=== PATIENT | female | born 1945 | race African-American/Black ===

== ENCOUNTER 2017-11-17 22:12 | Inpatient (IN) | payer MEDICARE, MEDICAID ==
[~2017-11-17] VITALS: Ht 170.2 cm; Wt 90.7 kg
[~2017-11-17 22:12] MED LIST: AMLODIPINE; HYDROCHLOROTHIAZIDE; MOTRIN; NAPROXEN; TEMAZEPAM; TRAMADOL
[2017-11-17] MEDS ORDERED: SODIUM CHLORIDE 0.9% 1,000 ML IV ONE (22:28)
[2017-11-17] MEDS ORDERED: LEVETIRACETAM 500MG PREMIX 100 ML IV ONE (22:30)
[2017-11-17 23:36] LABS: CHLORIDE 108 mEq/L (98-107)
[2017-11-17 23:39] LABS: ETHANOL BLOOD < 10 mg/dL
[2017-11-17 23:41] LABS: BASOPHILS % 0.6 % (0.0-2.0); EOSINOPHILS % 1.4 % (0.0-5.0); HEMATOCRIT. 36.1 % (36.0-48.0); HEMOGLOBIN. 12.4 g/dL (12.0-16.0); LYMPHOCYTES % 43.3 % (20.0-50.0); MEAN CORPUSCULAR HEMOGLOBIN 30.3 pg (28.0-32.0); MEAN CORPUSCULAR VOLUME 88.4 fL (81.0-99.0); MONOCYTES % 8.6 % (2.0-8.0); NEUTROPHILS % 46.1 % (40.0-76.0); PLATELET 342 x1000/uL (130-400); RED BLOOD CELL COUNT 4.08 mill/uL (4.2-5.4); RED CELL DISTRIBUTION WIDTH 12.6 % (11.6-14.6)
[2017-11-17 23:46] LABS: CREATINE KINASE MB FRACTION 0.9 ng/mL (0.5-3.6)
[2017-11-17 23:47] LABS: INR 1.1; PARTIAL THROMBOPLASTIN TIME 26.2 sec (23.4-31.0); PROTHROMBIN TIME 11.3 sec (9.4-11.6)
[2017-11-18] MEDS ORDERED: ASPIRIN 325MG EC TABLET PO ONE
[2017-11-18 03:00] LABS: *AMPHETAMINES SCREEN URINE NEGATIVE (NEGATIVE)
[2017-11-18 03:01] LABS: *BARBITURATES SCREEN URINE NEGATIVE (NEGATIVE); *BENZODIAZEPINES SCREEN URINE NEGATIVE (NEGATIVE); *COCAINE SCREEN URINE NEGATIVE (NEGATIVE); CANNABINOID URINE SCREEN NEGATIVE (NEGATIVE); METHADONE URINE SCREEN NEGATIVE (NEGATIVE); OPIATES URINE SCREEN NEGATIVE (NEGATIVE); PHENCYCLIDINE URINE SCREEN NEGATIVE (NEGATIVE)
[2017-11-18 04:00] VITALS: BP 158/63
[2017-11-18] MEDS ORDERED: HYDROCODONE/ACETAMINOPHEN 5/325MG TABLET PO PRN (04:45)
[2017-11-18 08:00] VITALS: BP 133/77
[2017-11-18] MEDS ORDERED: ENOXAPARIN 40MG/0.4ML SYR SUBCUT SCH (09:00)
[2017-11-18] MEDS: SODIUM CHLORIDE 0.45% 1,000 ML IV SCH (09:25)
[2017-11-18] MEDS ORDERED: AMLO10TA80 MT (11:06)
[2017-11-18] MEDS ORDERED: SIMV20TA6 MT (11:06)
[2017-11-18] MEDS ORDERED: HYDR-4009 MT (11:07)
[2017-11-18] MEDS ORDERED: HYDR-2510 MT (11:16)
[2017-11-18] MEDS ORDERED: NAPR220C7 MT (11:16)
[2017-11-18 12:00] VITALS: BP 172/88
[2017-11-18 20:00] VITALS: BP 157/90
[2017-11-18 23:47] VITALS: BP 167/85
[2017-11-19 04:00] VITALS: BP 166/82
[2017-11-19 08:00] VITALS: BP 129/84
[2017-11-19 10:00] VITALS: BP 129/84
[2017-11-19] MEDS: ENOXAPARIN 30MG/0.3ML SYR SUBCUT SCH ×2 (11:03→20:16)
[2017-11-19 11:42] VITALS: BP 116/74
[2017-11-19 16:00] VITALS: BP 145/90
[2017-11-19] MEDS: SODIUM CHLORIDE 0.45% 1,000 ML IV SCH (16:00)
[2017-11-19 18:00] VITALS: BP 145/90
[2017-11-20] VITALS: BP 163/74
[2017-11-20] MEDS ORDERED: CLONIDINE 0.2MG TABLET PO PRN (03:30)
[2017-11-20 03:40] VITALS: BP 167/97
[2017-11-20] MEDS: SODIUM CHLORIDE 0.45% 1,000 ML IV SCH (03:42)
[2017-11-20 05:00] VITALS: BP 115/78
[2017-11-20 08:00] VITALS: BP 138/75
[2017-11-20] MEDS: ENOXAPARIN 30MG/0.3ML SYR SUBCUT SCH (08:56)
[2017-11-20 09:48] VITALS: BP 138/75
== END 2017-11-20 12:11 | disposition home or self-care (01) | DRG 52 ==
LOC: ER 22:18 → 8WST 11-18 00:12 → EDBEDREQDT 11-18 00:16 → EDBEDREQTM 11-18 00:16 → EDBEDREQ 11-18 00:16
PROVIDERS: ADMIT Internal Medicine; ATTEND Internal Medicine
DX: G93.41 Metabolic encephalopathy (principal); E46 Unspecified protein-calorie malnutrition; D64.9 Anemia, unspecified; T42.4X5A Adverse effect of benzodiazepines, initial encounter; E86.0 Dehydration; I10 Essential (primary) hypertension; E78.00 Pure hypercholesterolemia, unspecified; I73.9 Peripheral vascular disease, unspecified; Z79.899 Other long term (current) drug therapy; Z68.31 Body mass index [BMI] 31.0-31.9, adult; Y92.89 Other specified places as the place of occurrence of the external cause
CPT/HCPCS: 36415; 70450; 71045; 80053; 80305; 82553; 84484; 85025; 85610; 85730; 93005; 96365; 97162; 99285; G0482; J1650; J1953; J7030

== ENCOUNTER 2018-05-08 06:14 | Emergency (ER) | payer MEDICARE, MEDICAID ==
[~2018-05-08] VITALS: Ht 162.6 cm; Wt 70.0 kg
[~2018-05-08 06:14] MED LIST changes: +AMLO10TA80 MT; -AMLODIPINE; +HYDR-2510 MT; +HYDR-4009 MT; -HYDROCHLOROTHIAZIDE; -MOTRIN; +NAPR220C7 MT; -NAPROXEN; +SIMV20TA6 MT; -TEMAZEPAM; -TRAMADOL
[2018-05-08 07:29] LABS: BASOPHILS % 0.7 % (0.0-2.0); EOSINOPHILS % 2.1 % (0.0-5.0); HEMATOCRIT. 32.5 % (36.0-48.0); HEMOGLOBIN. 11.2 g/dL (12.0-16.0); LYMPHOCYTES % 41.2 % (20.0-50.0); MEAN CORPUSCULAR VOLUME 89.7 fL (81.0-99.0); MONOCYTES % 8.3 % (2.0-8.0); NEUTROPHILS % 47.7 % (40.0-76.0); PLATELET 258 x1000/uL (130-400); RED BLOOD CELL COUNT 3.62 mill/uL (4.2-5.4); RED CELL DISTRIBUTION WIDTH 12.8 % (11.6-14.6)
[2018-05-08 07:35] LABS: CHLORIDE 110 mEq/L (98-107)
[2018-05-08] MEDS ORDERED: POTASSIUM CHLORIDE 20MEQ TABLET SR PO NR (10:15)
[2018-05-08 10:33] LABS: CLARITY URINE CLEAR (CLEAR); COLOR URINE YELLOW (YELLOW); KETONES URINE TRACE (NEGATIVE); LEUKOCYTE ESTERASE URINE 1+ (NEGATIVE); NITRITE URINE NEGATIVE (NEGATIVE); OCCULT BLOOD URINE NEGATIVE (NEGATIVE); PH URINE 5.5 (4.5-8.0); PROTEIN URINE TRACE (NEGATIVE); SPECIFIC GRAVITY URINE 1.018 (1.005-1.030)
[2018-05-08] MEDS ORDERED: CEFTRIAXONE 1 G PREMIX 50 ML IV SCH (13:00)
[2018-05-08] MEDS ORDERED: METRONIDAZOLE 500MG TABLET PO SCH (13:00)
[2018-05-08] MEDS ORDERED: AZITHROMYCIN 500 MG TABLET PO SCH (13:30)
[2018-05-08 14:01] VITALS: BP 129/79
== END 2018-05-08 14:06 | disposition home or self-care (01) ==
LOC: ER 06:14
DX: N39.0 Urinary tract infection, site not specified (principal); A59.9 Trichomoniasis, unspecified; E78.00 Pure hypercholesterolemia, unspecified; I10 Essential (primary) hypertension; Z79.899 Other long term (current) drug therapy; W18.39XA Other fall on same level, initial encounter; Y93.89 Activity, other specified; Y92.89 Other specified places as the place of occurrence of the external cause; Y99.8 Other external cause status
CPT/HCPCS: 36415; 70450; 71045; 80053; 81003; 85025; 96365; 99284; J0696

== ENCOUNTER 2018-05-31 10:02 | Emergency (ER) | payer MEDICARE, MEDICAID ==
[~2018-05-31] VITALS: Ht 170.2 cm; Wt 75.0 kg
[2018-05-31] MEDS ORDERED: KETOROLAC 30MG/ML VIAL IV ONE (12:30)
[2018-05-31] MEDS ORDERED: ACETAMINOPHEN 325MG TABLET PO ONE (13:15)
[2018-05-31 14:00] VITALS: BP 152/97
== END 2018-05-31 15:00 | disposition home or self-care (01) ==
LOC: ER 10:13
DX: R51 Headache (principal); I10 Essential (primary) hypertension; W06.XXXA Fall from bed, initial encounter; Y93.89 Activity, other specified; Y92.89 Other specified places as the place of occurrence of the external cause; Y99.8 Other external cause status
CPT/HCPCS: 99284

== ENCOUNTER 2018-07-09 11:29 | Emergency (ER) | payer MEDICARE, MEDICAID ==
[~2018-07-09] VITALS: Ht 167.6 cm; Wt 75.0 kg
[2018-07-09] MEDS ORDERED: SODIUM CHLORIDE 0.9% 500 ML IV ONE (12:00)
[2018-07-09 14:54] LABS: CHLORIDE 113 mEq/L (98-107)
[2018-07-09 15:06] LABS: INR 1.1; PARTIAL THROMBOPLASTIN TIME 24.7 sec (23.4-31.0); PROTHROMBIN TIME 10.8 sec (9.1-11.1)
[2018-07-09 15:07] LABS: BASOPHILS % 0.7 % (0.0-2.0); EOSINOPHILS % 0.7 % (0.0-5.0); HEMATOCRIT. 31.9 % (36.0-48.0); HEMOGLOBIN. 10.7 g/dL (12.0-16.0); LYMPHOCYTES % 38.8 % (20.0-50.0); MEAN CORPUSCULAR HEMOGLOBIN 30.5 pg (28.0-32.0); MEAN CORPUSCULAR VOLUME 91.3 fL (81.0-99.0); MEAN PLATELET VOLUME 7.5 fl (7.4-10.4); MONOCYTES % 6.9 % (2.0-8.0); NEUTROPHILS % 52.9 % (40.0-76.0); PLATELET 259 x1000/uL (130-400); RED BLOOD CELL COUNT 3.49 mill/uL (4.2-5.4); RED CELL DISTRIBUTION WIDTH 14.2 % (11.6-14.6)
[2018-07-09] MEDS ORDERED: CLONIDINE 0.1MG TABLET PO PRN ×2 (16:00→16:15)
[2018-07-09] MEDS ORDERED: AMLODIPINE 2.5MG TABLET PO SCH (16:00)
[2018-07-09] MEDS ORDERED: SODIUM CHLORIDE 0.45% 1,000 ML IV SCH (16:10)
[2018-07-09] MEDS ORDERED: GUAIFENESIN 200MG/10ML SUGAR FREE UDC PO PRN (16:15)
[2018-07-09] MEDS ORDERED: HYDROCODONE/ACETAMINOPHEN 10/325MG TABLET PO PRN (16:15)
[2018-07-09] MEDS ORDERED: LORAZEPAM 2MG/ML CPJ IV PRN (16:15)
[2018-07-09] MEDS ORDERED: ACETAMINOPHEN 325MG TABLET PO PRN (16:15)
[2018-07-09] MEDS ORDERED: IPRATROPIUM/ALBUTEROL 0.5-3(2.5)MG/3ML NEB INH PRN (16:15)
[2018-07-09] MEDS ORDERED: ONDANSETRON HCL 4MG/2ML INJ IV PRN (16:15)
[2018-07-09] MEDS ORDERED: DOCUSATE SODIUM 100MG CAPSULE PO PRN (16:15)
[2018-07-09] MEDS ORDERED: DIPHENHYDRAMINE 50MG/ML VIAL IV PRN (16:15)
[2018-07-09] MEDS ORDERED: FUROSEMIDE 20MG/2ML VIAL IVP ONE (16:15)
[2018-07-09] MEDS ORDERED: MAGNESIUM/ALUMINUM HYDROXIDE/SIMETHICONE 30ML UDC PO PRN (16:15)
[2018-07-09] MEDS ORDERED: ENOXAPARIN 40MG/0.4ML SYR SUBCUT SCH (16:15)
[2018-07-09] MEDS ORDERED: HYDROMORPHONE HCL/PF 2MG/ML CPJ IV PRN (17:00)
[2018-07-09 17:10] VITALS: BP 134/79
[2018-07-09] MEDS ORDERED: NA PHOS,M-B/NA PHOS,DI-BA ENEMA 118ML PR PRN (21:00)
[2018-07-10] MEDS ORDERED: ASPIRIN 81MG EC TABLET PO SCH (09:00)
== END 2018-07-09 17:15 | disposition home or self-care (01) ==
LOC: ER 11:29 → EDBEDREQ 13:17 → EDBEDREQTM 13:17 → ENRESERV 13:32 → EDRESERV 13:32 → CANRESERV 13:32 → ER 17:15 → CANBEDREQ 17:36
DX: R55 Syncope and collapse (principal); G92 Toxic encephalopathy; E86.0 Dehydration; I10 Essential (primary) hypertension; I25.10 Atherosclerotic heart disease of native coronary artery without angina pectoris; E78.00 Pure hypercholesterolemia, unspecified; E46 Unspecified protein-calorie malnutrition; D64.9 Anemia, unspecified; M19.90 Unspecified osteoarthritis, unspecified site; Z79.899 Other long term (current) drug therapy
CPT/HCPCS: 36415; 70450; 71045; 80053; 83735; 83880; 84484; 85025; 85610; 85730; 93005; 96360; 96361; 99284; J7040

== ENCOUNTER 2018-12-10 01:14 | Emergency (ER) | payer MEDICARE, MEDICAID ==
[~2018-12-10] VITALS: Ht 162.6 cm; Wt 58.0 kg
[~2018-12-10 01:14] MED LIST changes: +NAPR220C61 MT; -NAPR220C7 MT
[2018-12-10] MEDS ORDERED: ONDANSETRON HCL 4MG/2ML INJ IV STA (02:05)
[2018-12-10] MEDS ORDERED: SODIUM CHLORIDE 0.9% 1,000 ML IV ONE (02:05)
[2018-12-10 02:49] LABS: BASOPHILS % 0.5 % (0.0-2.0); EOSINOPHILS % 0.3 % (0.0-5.0); HEMATOCRIT. 32.4 % (36.0-48.0); MEAN CORPUSCULAR HEMOGLOBIN 31.5 pg (28.0-32.0); MEAN CORPUSCULAR VOLUME 92.4 fL (81.0-99.0); MEAN PLATELET VOLUME 7.3 fl (7.4-10.4); NEUTROPHILS % 80.2 % (40.0-76.0); PLATELET 249 x1000/uL (130-400); RED CELL DISTRIBUTION WIDTH 12.6 % (11.6-14.6)
[2018-12-10 02:50] LABS: CHLORIDE 106 mEq/L (98-107)
[2018-12-10 03:50] LABS: CLARITY URINE CLOUDY (CLEAR); COLOR URINE YELLOW (YELLOW); KETONES URINE TRACE (NEGATIVE); LEUKOCYTE ESTERASE URINE NEGATIVE (NEGATIVE); NITRITE URINE NEGATIVE (NEGATIVE); OCCULT BLOOD URINE NEGATIVE (NEGATIVE); PROTEIN URINE NEGATIVE (NEGATIVE); SPECIFIC GRAVITY URINE 1.016 (1.005-1.030); UROBILINOGEN URINE 0.2 E.U./dL (0.2-1.0)
[2018-12-10] MEDS ORDERED: SODIUM CHLORIDE 0.45% 1,000 ML IV SCH (10:00)
[2018-12-10 10:32] LABS: CREATINE KINASE 42 IU/L (26-192)
[2018-12-10 11:50] LABS: *AMPHETAMINES SCREEN URINE NEGATIVE (NEGATIVE); *BARBITURATES SCREEN URINE NEGATIVE (NEGATIVE); *BENZODIAZEPINES SCREEN URINE NEGATIVE (NEGATIVE); *COCAINE SCREEN URINE NEGATIVE (NEGATIVE); METHADONE URINE SCREEN NEGATIVE (NEGATIVE); OPIATES URINE SCREEN NEGATIVE (NEGATIVE)
[2018-12-10 11:51] LABS: CANNABINOID URINE SCREEN NEGATIVE (NEGATIVE); PHENCYCLIDINE URINE SCREEN NEGATIVE (NEGATIVE)
[2018-12-10] MEDS ORDERED: MAGNESIUM/ALUMINUM HYDROXIDE/SIMETHICONE 30ML UDC PO PRN (14:00)
[2018-12-10] MEDS ORDERED: CLONIDINE 0.1MG TABLET PO PRN (14:00)
[2018-12-10] MEDS ORDERED: ACETAMINOPHEN 325MG TABLET PO PRN (14:00)
[2018-12-10] MEDS ORDERED: ONDANSETRON HCL 4MG/2ML INJ IV PRN (14:00)
[2018-12-10] MEDS ORDERED: HYDROCODONE/ACETAMINOPHEN 5/325MG TABLET PO PRN (14:00)
[2018-12-10 14:44] VITALS: BP 127/67
[2018-12-11 09:10] LABS: ANTI-NUCLEAR ANTIBODIES DIRECT Negative (Negative)
[2018-12-12 08:12] LABS: COMPLEMENT C3 108 mg/dL (82-167)
== END 2018-12-10 15:15 | disposition left against medical advice (07) ==
LOC: ER 01:14 → EDBEDREQ 05:25 → EDBEDREQTM 05:25 → ENRESERV 13:11 → CANRESERV 13:11 → CANBEDREQ 14:51 → ER 15:15
DX: R55 Syncope and collapse (principal); I10 Essential (primary) hypertension; R00.1 Bradycardia, unspecified; D64.9 Anemia, unspecified; E78.00 Pure hypercholesterolemia, unspecified; N17.9 Acute kidney failure, unspecified; F03.90 Unspecified dementia, unspecified severity, without behavioral disturbance, psychotic disturbance, mood disturbance, and anxiety
CPT/HCPCS: 36415; 71045; 80053; 80305; 80320; 81003; 82550; 83605; 83690; 83880; 84484; 85025; 86038; 86160; 93005; 93880; 96360; 96361; 99284; J7030; G0480